=== PATIENT | female | born 1960 | race Caucasian/White ===

== ENCOUNTER 2017-08-13 13:27 | Emergency (ER) | payer BC, OTHER ==
[~2017-08-13] VITALS: Ht 167.6 cm; Wt 70.3 kg
[~2017-08-13 13:27] MED LIST: ALBUTEROL2.5 MG/0.5 IH; AMITRIPTYLINE H25 M2 PO; BACTRIM DS TAB1 EACH PO; BENADRYL25 MG PO; BUTALB-APAP-CA1 EACH PO; CIPRO500 MG PO; CYCLOBENZAPRINE5 MG PO; DEPO-TESTO100 MG/1 M; DIFLUCAN150 MG PO; DIFLUCAN200 MG PO; FLAGYL500 MG PO; FLEXERIL PO; FLONASE 0.05%50 MCG NASAL; HORMONE REPLACEMENT; HYDROCODONE-AP1 EAC6 PO; MACROBID 100 M100 M1 PO; NAPROSYN250 MG PO; NORCO 5-325 TA1 EACH PO; ONDANSETRON HCL4 M2 PO; PHENAZOPYRIDIN200 M2 PO; PRAVACHOL20 MG PO; PREDNISONE 20 M20 M1 PO; SYNTHROID25 MCG PO; ZOFRAN 4 MG ORAL4 M1 DIS
[2017-08-13 13:45] VITALS: BP 130/80
== END 2017-08-13 14:40 | disposition home or self-care (01) ==
LOC: ER 13:27
DX: G43.909 Migraine, unspecified, not intractable, without status migrainosus (principal); M79.7 Fibromyalgia; Z88.1 Allergy status to other antibiotic agents

== ENCOUNTER 2017-09-21 14:29 | Emergency (ER) | payer BC, OTHER ==
[~2017-09-21] VITALS: Ht 167.6 cm; Wt 71.7 kg
[2017-09-21 14:31] VITALS: BP 132/85
[2017-09-21] MEDS ORDERED: NORCO 5-325 TA1 EACH PO (15:10)
== END 2017-09-21 15:26 | disposition home or self-care (01) ==
LOC: ER 14:29
DX: M25.531 Pain in right wrist (principal); M79.7 Fibromyalgia; G43.909 Migraine, unspecified, not intractable, without status migrainosus; Z88.1 Allergy status to other antibiotic agents

== ENCOUNTER 2018-02-01 23:57 | Emergency (ER) | payer BC, OTHER ==
[~2018-02-01] VITALS: Ht 167.6 cm; Wt 70.3 kg
[2018-02-02 00:35] LABS: URINE BILIRUBIN NEGATIVE (Negative); URINE BLOOD 3+ (Negative); URINE CLARITY CLEAR; URINE COLOR YELLOW; URINE GLUCOSE-RANDOM* NEGATIVE (Negative); URINE KETONES NEGATIVE (Negative); URINE LEUKOCYTES-REFLEX NEGATIVE (Negative); URINE NITRITE-REFLEX NEGATIVE (Negative); URINE PROTEIN (DIPSTICK) NEGATIVE (Negative); URINE SPECIFIC GRAVITY >= 1.030 (1.005-1.035); URINE UROBILINOGEN 0.2 E.U./dl (0.2-1.0)
[2018-02-02 00:47] LABS: CASTS None Seen /LPF (None Seen); MUCUS 4-6 Moderate strn/LPF (None Seen); SQUAMOUS >10 Many /LPF (0-3)
[2018-02-02 00:48] LABS: BACTERIA-REFLEX >30 Many /HPF (None Seen); CRYSTALS None Seen /LPF (None Seen); URINE RBC 3-10 Few /HPF (0-2); URINE WBC-REFLEX 0-5 Rare /HPF (0-5)
[2018-02-02 00:53] LABS: ABSOLUTE NEUTROPHILS 9.1 thou/uL (1.4-8.2); BASOPHILS 0.2 % (0.0-2.0); EOSINOPHILS 1.1 % (0.0-3.0); HEMOGLOBIN 14.7 gm/dL (12.0-15.0); LYMPHOCYTES 12.2 % (24.0-44.0); MCHC 34.2 g/dL (28.0-37.0); MCV 87.7 fL (80.0-100.0); PLATELET COUNT 277 thou/uL (150-400); POLYS 79.5 % (36.0-66.0); RDW 13.7 % (10.5-14.5); WBC 11.4 thou/uL (4.0-11.0)
[2018-02-02 01:01] LABS: CALCIUM 8.9 mg/dL (8.5-10.1); CREATININE 1.2 mg/dL (0.6-1.0)
[2018-02-02 01:07] LABS: ALBUMIN 3.5 g/dL (3.4-5.0); TOTAL BILIRUBIN 0.8 mg/dL (<0.1-1.0); TOTAL PROTEIN 7.1 g/dL (6.4-8.2)
[2018-02-02] MEDS ORDERED: FLAGYL500 MG PO (01:40)
[2018-02-02] MEDS ORDERED: CIPROFLOXACIN500 M1 PO (01:40)
[2018-02-02 02:00] VITALS: BP 134/72
== END 2018-02-02 02:02 | disposition home or self-care (01) ==
LOC: ER 23:57
PROVIDERS: Emergency Medicine
DX: N39.0 Urinary tract infection, site not specified (principal); M79.7 Fibromyalgia; G43.909 Migraine, unspecified, not intractable, without status migrainosus; Z90.49 Acquired absence of other specified parts of digestive tract; Z90.722 Acquired absence of ovaries, bilateral; Z88.1 Allergy status to other antibiotic agents

== ENCOUNTER 2019-01-15 00:39 | Emergency (ER) | payer BC, OTHER ==
[~2019-01-15] VITALS: Ht 167.6 cm; Wt 70.3 kg
[~2019-01-15 00:39] MED LIST changes: +CIPROFLOXACIN500 M1 PO
[2019-01-15] MEDS ORDERED: COZAAR 50 MG TA50 M1 PO (00:56)
[2019-01-15] MEDS ORDERED: RIZATRIPTAN10 M1 PO (01:05)
[2019-01-15] MEDS ORDERED: BUTALB-APAP-CA1 EACH PO (01:28)
[2019-01-15] MEDS ORDERED: PROMS25 WY RECTAL (01:28)
[2019-01-15 01:38] VITALS: BP 156/86
== END 2019-01-15 01:40 | disposition home or self-care (01) ==
LOC: ER 00:39
DX: G43.809 Other migraine, not intractable, without status migrainosus (principal); M62.48 Contracture of muscle, other site; M79.7 Fibromyalgia; Z90.49 Acquired absence of other specified parts of digestive tract; Z90.721 Acquired absence of ovaries, unilateral; Z88.1 Allergy status to other antibiotic agents

== ENCOUNTER 2020-05-04 02:07 | Emergency (ER) | payer BC, OTHER ==
[~2020-05-04] VITALS: Ht 165.1 cm; Wt 71.2 kg
[~2020-05-04 02:07] MED LIST changes: +COZAAR 50 MG TA50 M1 PO; +PROMS25 WY RECTAL; +RIZATRIPTAN10 M1 PO
[2020-05-04] MEDS ORDERED: SERTRALINE HCL100 MG PO (02:20)
[2020-05-04] MEDS ORDERED: ASA81BEC PO (02:21)
[2020-05-04] MEDS ORDERED: REGLAN 5 MG TAB5 MG PO (03:07)
[2020-05-04 03:29] VITALS: BP 168/84
== END 2020-05-04 03:29 | disposition home or self-care (01) ==
LOC: ER 02:07
DX: G43.909 Migraine, unspecified, not intractable, without status migrainosus (principal); M79.7 Fibromyalgia; Z88.1 Allergy status to other antibiotic agents; Z79.82 Long term (current) use of aspirin; Z79.899 Other long term (current) drug therapy; Z90.49 Acquired absence of other specified parts of digestive tract; Z90.710 Acquired absence of both cervix and uterus; Z85.118 Personal history of other malignant neoplasm of bronchus and lung

== ENCOUNTER 2020-07-07 12:09 | Emergency (ER) | payer BC, OTHER ==
[~2020-07-07] VITALS: Ht 162.6 cm; Wt 70.8 kg
[~2020-07-07 12:09] MED LIST changes: +ASA81BEC PO; +REGLAN 5 MG TAB5 MG PO; +SERTRALINE HCL100 MG PO
[2020-07-07 15:15] VITALS: BP 129/76
== END 2020-07-07 15:16 | disposition home or self-care (01) ==
LOC: ER 12:09
DX: M75.51 Bursitis of right shoulder (principal); G43.909 Migraine, unspecified, not intractable, without status migrainosus; Z90.49 Acquired absence of other specified parts of digestive tract; Z90.710 Acquired absence of both cervix and uterus; Z79.82 Long term (current) use of aspirin; Z79.899 Other long term (current) drug therapy; Z88.1 Allergy status to other antibiotic agents

== ENCOUNTER 2020-08-10 06:59 | Emergency (ER) | payer BC, OTHER ==
[~2020-08-10] VITALS: Ht 165.1 cm; Wt 68.0 kg
[2020-08-10 07:51] LABS: ABSOLUTE NEUTROPHILS 6.5 thou/uL (1.4-8.2); BASOPHILS 0.1 % (0.0-2.0); EOSINOPHILS 1.5 % (0.0-3.0); HEMATOCRIT 44.4 % (37.0-47.0); HEMOGLOBIN 14.9 gm/dL (12.0-15.0); LYMPHOCYTES 10.6 % (24.0-44.0); MCH 29.5 pg (26.0-34.0); MCHC 33.4 g/dL (28.0-37.0); MCV 88.2 fL (80.0-100.0); MONOCYTES 7.5 % (1.0-8.0); PLATELET COUNT 307 thou/uL (150-400); POLYS 80.3 % (36.0-66.0); RBC 5.04 mil/uL (4.20-5.00); RDW 14.5 % (10.5-14.5); WBC 8.1 thou/uL (4.0-11.0)
[2020-08-10 07:55] LABS: CALCIUM 8.6 mg/dL (8.5-10.1); POTASSIUM 3.3 mmol/L (3.5-5.1)
[2020-08-10 08:01] LABS: ALBUMIN 3.5 g/dL (3.4-5.0); TOTAL BILIRUBIN 0.7 mg/dL (0.2-1.0); TOTAL PROTEIN 7.2 g/dL (6.4-8.2)
[2020-08-10 10:28] VITALS: BP 147/72
== END 2020-08-10 10:28 | disposition home or self-care (01) ==
LOC: ER 06:59
PROVIDERS: Emergency Medicine Emergency Medical Services
DX: R19.7 Diarrhea, unspecified (principal); Z20.822 Contact with and (suspected) exposure to COVID-19; C34.90 Malignant neoplasm of unspecified part of unspecified bronchus or lung; R11.2 Nausea with vomiting, unspecified; M79.7 Fibromyalgia; G43.909 Migraine, unspecified, not intractable, without status migrainosus; Z88.1 Allergy status to other antibiotic agents; Z79.82 Long term (current) use of aspirin; Z79.899 Other long term (current) drug therapy; Z90.710 Acquired absence of both cervix and uterus; Z92.21 Personal history of antineoplastic chemotherapy

== ENCOUNTER 2020-08-25 20:46 | Emergency (ER) | payer BC, OTHER ==
[~2020-08-25] VITALS: Ht 165.1 cm; Wt 68.0 kg
[2020-08-25 21:22] LABS: URINE BILIRUBIN NEGATIVE (Negative); URINE BLOOD 3+ (Negative); URINE CLARITY CLEAR; URINE COLOR YELLOW; URINE GLUCOSE-RANDOM* NEGATIVE (Negative); URINE KETONES NEGATIVE (Negative); URINE LEUKOCYTES-REFLEX NEGATIVE (Negative); URINE NITRITE-REFLEX NEGATIVE (Negative); URINE PROTEIN (DIPSTICK) NEGATIVE (Negative); URINE SPECIFIC GRAVITY >= 1.030 (1.005-1.035); URINE UROBILINOGEN 0.2 E.U./dl (0.2-1.0)
[2020-08-25 21:26] LABS: ABSOLUTE NEUTROPHILS 6.5 thou/uL (1.4-8.2); BASOPHILS 0.2 % (0.0-2.0); EOSINOPHILS 1.4 % (0.0-3.0); HEMATOCRIT 38.9 % (37.0-47.0); HEMOGLOBIN 13.5 gm/dL (12.0-15.0); MCH 30.6 pg (26.0-34.0); MCHC 34.6 g/dL (28.0-37.0); MCV 88.3 fL (80.0-100.0); MONOCYTES 7.7 % (1.0-8.0); PLATELET COUNT 224 thou/uL (150-400); POLYS 81.7 % (36.0-66.0); RDW 14.9 % (10.5-14.5); WBC 7.9 thou/uL (4.0-11.0)
[2020-08-25 21:30] LABS: ANION GAP 8 mmol/L (7-16); BUN 10 mg/dL (7-18); CALCIUM 8.3 mg/dL (8.5-10.1); CHLORIDE 107 mmol/L (98-107); CO2 27 mmol/L (21-32); CREATININE 1.1 mg/dL (0.6-1.0); GLUCOSE 99 mg/dL (74-106); POTASSIUM 4.1 mmol/L (3.5-5.1); SODIUM 142 mmol/L (136-145)
[2020-08-25 21:31] LABS: CASTS None Seen /LPF (None Seen); MUCUS 0-3 Light strn/LPF (None Seen); SQUAMOUS 4-10 Moderate /LPF (0-3); URINE WBC-REFLEX 0-5 Rare /HPF (0-5)
[2020-08-25 21:32] LABS: BACTERIA-REFLEX 1-9 Few /HPF (None Seen); CRYSTALS None Seen /LPF (None Seen)
[2020-08-25 21:33] LABS: YEAST-REFLEX Present (None Seen)
[2020-08-25 21:36] LABS: ALBUMIN 3.1 g/dL (3.4-5.0); DIRECT BILIRUBIN < 0.1 mg/dL (<0.1-0.2); LIPASE 126 U/L (73-393); SGOT 30 U/L (15-37); SGPT 47 U/L (14-59); TOTAL BILIRUBIN 0.5 mg/dL (0.2-1.0); TOTAL PROTEIN 6.6 g/dL (6.4-8.2)
[2020-08-25] MEDS ORDERED: DIFLUCAN100 MG PO (22:41)
[2020-08-25] MEDS ORDERED: FLAGYL500 M1 PO (22:41)
[2020-08-25] MEDS ORDERED: CIPRO500 M1 PO (22:41)
[2020-08-25 22:45] VITALS: BP 131/76
== END 2020-08-25 22:50 | disposition home or self-care (01) ==
LOC: ER 20:46
PROVIDERS: Nurse Practitioner
DX: R10.31 Right lower quadrant pain (principal); M79.7 Fibromyalgia; G43.909 Migraine, unspecified, not intractable, without status migrainosus; Z90.49 Acquired absence of other specified parts of digestive tract; Z90.710 Acquired absence of both cervix and uterus; Z90.722 Acquired absence of ovaries, bilateral; Z85.118 Personal history of other malignant neoplasm of bronchus and lung; Z88.1 Allergy status to other antibiotic agents

== ENCOUNTER 2020-11-26 17:08 | Inpatient (IN) | payer BC, OTHER ==
[~2020-11-26] VITALS: Ht 165.1 cm; Wt 68.0 kg
[~2020-11-26 17:08] MED LIST changes: +CIPRO500 M1 PO; +DIFLUCAN100 MG PO; +FLAGYL500 M1 PO
[2020-11-26 17:11] VITALS: BP 119/64
[2020-11-26 18:05] LABS: HEMATOCRIT 31.3 % (37.0-47.0); MCH 30.9 pg (26.0-34.0); MCV 88.3 fL (80.0-100.0); PLATELET COUNT 185 thou/uL (150-400); RBC 3.55 mil/uL (4.20-5.00); RDW 14.2 % (10.5-14.5); WBC 2.2 thou/uL (4.0-11.0)
[2020-11-26 18:12] LABS: CALCIUM 8.2 mg/dL (8.5-10.1); CREATININE 1.3 mg/dL (0.6-1.0); POTASSIUM 3.7 mmol/L (3.5-5.1)
[2020-11-26 18:20] LABS: ALBUMIN 2.6 g/dL (3.4-5.0); TOTAL BILIRUBIN 0.7 mg/dL (0.2-1.0); TOTAL PROTEIN 6.1 g/dL (6.4-8.2)
[2020-11-26 18:54] LABS: URINE BILIRUBIN NEGATIVE (Negative); URINE BLOOD 2+ (Negative); URINE CLARITY CLEAR; URINE COLOR YELLOW; URINE GLUCOSE-RANDOM* NEGATIVE (Negative); URINE KETONES NEGATIVE (Negative); URINE LEUKOCYTES-REFLEX NEGATIVE (Negative); URINE PROTEIN (DIPSTICK) 1+ (Negative); URINE UROBILINOGEN 0.2 E.U./dl (0.2-1.0)
[2020-11-26 18:57] LABS: URINE NITRITE-REFLEX POSITIVE (Negative)
[2020-11-26 19:08] LABS: SQUAMOUS 4-10 Moderate /LPF (0-3)
[2020-11-26 19:09] LABS: URINE WBC-REFLEX 0-5 Rare /HPF (0-5)
[2020-11-26 19:10] LABS: CASTS None Seen /LPF (None Seen); CRYSTALS None Seen /LPF (None Seen)
[2020-11-26 19:29] LABS: ATYPICAL LYMPHS 2 %; METAMYELOCYTES 1 %
[2020-11-26 21:10] VITALS: BP 103/61
[2020-11-26] MEDS ORDERED: SYNTHROID100 MC1 PO (21:58)
[2020-11-26 22:21] VITALS: BP 103/61
--- NOTE | 2020-11-26 23:02 | NUR ---
ADMITTED TO THE UNIT AT 2210. PT IS A/O X4 AND IS UP AD FAIZAN IN ROOM. IS ON ROOM AIR. SR/ST ON THE MONITOR. VSS AFEBRILE. 95% ON ROOM AIR. ABX AND MAINTENCE FLUID INFUSING THROUGH LEFT CHEST PORT CURRENTLY. PT HAS BEEN EDUCATED ON THE USE OF CALL LIGHT AND BED CONTROLS. CALL LIGHT IS WITHIN REACH. WILL CONTINUE TO MONITOR. DENIES C/O PAIN OR DISCOMFORT.
[2020-11-27 06:09] LABS: HEMATOCRIT 27.5 % (37.0-47.0); HEMOGLOBIN 9.7 gm/dL (12.0-15.0); MCH 31.3 pg (26.0-34.0); MCHC 35.4 g/dL (28.0-37.0); MCV 88.4 fL (80.0-100.0); RBC 3.11 mil/uL (4.20-5.00); RDW 14.5 % (10.5-14.5)
[2020-11-27 06:22] LABS: CALCIUM 7.6 mg/dL (8.5-10.1); CREATININE 1.3 mg/dL (0.6-1.0); MAGNESIUM 1.9 mg/dL (1.8-2.4)
[2020-11-27 07:30] VITALS: BP 116/59
--- NOTE | 2020-11-27 07:30 | EKG ---
[address] [employer] [place] [address] ELECTROCARDIOGRAM REPORT Name: JONG LUX ADRI Room #: 457-P ADM IN M.R.#: [id number] Admission: 11/26/20 Attend Phys: Yari Kelly MD Discharge: Date of : 60 Report #: [id number] [facility] ED Test Date: 2020-11-26 Test Time: 17:27:47 Pat Name: JONG LUX Department: Room: 457 Gender: F Insulation Nozzleman: WILNER : 1960 Requested By: Wolfgang Taylor Order Number: [id number] : George Reyna Measurements Intervals [place] Rate: 122 P: 55 MD: 134 QRS: -27 QRSD: 83 T: 59 QT: 320 QTc: 456 Interpretive Statements Sinus tachycardia Borderline left axis deviation Low voltage, extremity leads No previous ECG available for comparison Electronically Signed On 11-27-2020 7:30:31 CDT by George Reyna [email or web address] <ELECTRONICALLY SIGNED> By: George Reyna MD, [facility] 11/27/20 0730 1727 1727 George Reyna MD, FACC /EPI
--- NOTE | 2020-11-27 10:30 | NUR ---
ASSUMED PT CARE THIS AM. PT IS ALERT & ORIENTED X4. PT HAS L CHEST PORT. PT IS UP AD FAIZAN. PT IS ON TELE MONITOR ON AND ON ROOM AIR. NO C/O OF PAIN, NAUSEA AND VOMITING THIS AM. NOTED LOW GRADE FEVER THIS AM AND GIVEN TYLENOL AND RECHECK AND TEMP NOW 98.7F. SEND MESSAGE TO CS REGARDING NEUTROPENIC PRECAUTION PER DR MERCER ORDERED. PT AT THE BEDSIDE. WILL CONTINUE TO MONITOR PT. FOLLOW POC.
--- NOTE | 2020-11-27 14:44 | NUR ---
PT ADMITTED RELATED TO [facility]PS[facility]. CM REVIEWED CHART AND SPOKE WITH CARE TEAM. CM MET WITH PT AND FRIEND BENOIT AT BEDSIDE THIS DAY. PT APPEARED TO BE A&O X4. CM ROLE INTRODUCED. PT INDICATED THAT SHE RESIDES IN A HOUSE WITH HER SPOUSE WITH NO STEPS TO ENTER AND 12 STEPS TO BASEMENT INSIDE. 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 PT INDICATED NO HH OR OP THERAPY HX. PT FOLLOWS WITH DR. BRIANNA GILLESPIE FOR CHEMO AT AND HER LAST TREATMENT WAS 2 WEEKS AGO. PT'S PCP IS DR. RODOLFO SMITH. PT INDICATED SHE PLANS TO RETURN HOME ONCE MEDICALLY STABLE. CM FOLLOWING REGARDING DC PLANNING.
[2020-11-27 15:08] VITALS: BP 124/75; BP 94/64
[2020-11-27 20:04] VITALS: BP 125/75
[2020-11-28 04:00] VITALS: BP 126/76
--- NOTE | 2020-11-28 04:54 | NUR ---
Assumed pt care at 1900. A/OX4, at HS febrile temp 101.3 medicated with Tylenol and effective;down to 98.8. Denies pain,N/V on assessmnet. Has a non productive cough,fluids encouraged. Left chest port patent with NS infusing w/o problems. Dr Gutiérrez rounded at HS,N.O written and implemented. Placed on neutropinic isolation. Up ad vinny w/o problems. ST on telemetry.Resting quietly w/o distress,will continue to monitor pt.
[2020-11-28 05:46] LABS: HEMATOCRIT 25.3 % (37.0-47.0); HEMOGLOBIN 8.9 gm/dL (12.0-15.0); MCH 31.2 pg (26.0-34.0); MCHC 35.2 g/dL (28.0-37.0); MCV 88.6 fL (80.0-100.0); RBC 2.86 mil/uL (4.20-5.00); RDW 14.2 % (10.5-14.5); WBC 2.6 thou/uL (4.0-11.0)
[2020-11-28 06:04] LABS: CALCIUM 7.5 mg/dL (8.5-10.1); CREATININE 1.2 mg/dL (0.6-1.0); POTASSIUM 3.4 mmol/L (3.5-5.1)
[2020-11-28 08:25] VITALS: BP 130/80
--- NOTE | 2020-11-28 08:32 | HC ---
[facility] [place] [address] CONSULTATION Name: JONG LUX [facility] Room #: 457-P [facility] IN M.R.#: [id number] Admission: 11/26/20 Attend Phys: Tr Benitez MD Discharge: Date of : 60 Report #: [id number] THIS REPORT FOR: cc: Alma Delia Sanchez MD, Melanie MD McKittrick, Richard James MD ~ cc: Yari Kelly MD DATE OF SERVICE: 11/27/2020 REASON FOR CONSULTATION: History of metastatic pleomorphic high-grade sarcoma. HISTORY OF PRESENT ILLNESS: The patient is a very pleasant 60-year-old female who has a history of sarcoma since originally diagnosed in 2008. She began her first cycle of Adriamycin on about 11/14/2020. She tolerated it well. Was around some grandkids about a week ago who had some nausea and vomiting, her and her both had that but that resolved. But for the last 2 or 3 days, she developed fever up to 102, and was up to 103 last night. She came to the Emergency Room more for COVID test, was found to be neutropenic and was admitted. She denies any unusual headaches though she does have a history of migraines. Her nausea and vomiting has resolved. No really diarrhea or constipation that resolved. No blood in urine or stool. No new arm or leg swelling. No new skin changes. No new skin rash. No new cough. She has had a slight cough, but actually may be slightly better, nonproductive for the most part, has had some mouth sores she describes in her lower inner base of mouth. 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 She then had surgery on at a later date with 90% necrosis that was surgery on 09/27/2019. Unfortunately, in 03/2020 she is thought to have progression of, then was thought to be, metastatic disease. She was on Keytruda with a mixed response, had radiation therapy to her right middle lobe lesion, completed in July 2020. Most recently, she had some progression and began Adriamycin on 11/14/2020. PAST MEDICAL HISTORY: Also history of asthma, skin cancer, hypothyroidism, hyperlipidemia, hypertension, history of migraines. PAST SURGICAL HISTORY: Also, history of hysterectomy, oophorectomy, appendectomy, cholecystectomy, EGD with biopsy in the past, knee arthroscopy, and shoulder surgery. FAMILY HISTORY: Noncontributory. SOCIAL HISTORY: Both her and her from the [place] area. 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 They have, I [facility] [address] [place] [address] CONSULTATION Name: JONG LUX ADRI Room #: 457-P [facility] IN M.R.#: [id number] Admission: 11/26/20 Attend Phys: Tr Benitez MD Discharge: Date of : 60 Report #: [id number] think, 2 children and 6 grandchildren in the area. Nonsmoker, minimal alcohol, no street drugs. MEDICATIONS: At this time in the hospital, currently include amitriptyline 25 daily, enteric-coated aspirin 81 daily, vancomycin 750 q.12, famotidine 20 daily, levothyroxine 100 mcg daily, budesonide 0.5 respiratory therapy b.i.d., ipratropium albuterol q. 4 respiratory therapy, Zosyn 3.375 q. 8 hours, Lovenox 40 at bedtime, Tylenol p.r.n., Zofran p.r.n. PHYSICAL EXAMINATION: GENERAL: The patient appears her stated age. VITAL SIGNS: Her height is 5 feet 5 inches, 165.1 cm, weight is 150 pounds or 68.04 kg, temperature was up to 102.1 last night, currently 99.5, blood pressure 116/59, respirations 21, pulse 137, O2 sat 95%. NEUROLOGIC: Alert and oriented. Speech and thought pattern normal. Moving upper and lower extremities. HEENT: Oral is clear, though there may be some mucositis lesions underneath or on floor of her mouth. LUNGS: Appear to be clear, without rhonchi, wheezes, or use of accessory muscles. HEART: Regular rate, but slightly tachycardic. LYMPHATICS: No enlarged lymph nodes in the supraclavicular, cervical, axillary or inguinal region. ABDOMEN: Soft, no masses. EXTREMITIES: Without clubbing, cyanosis. There may be trace edema. LABORATORY DATA: Here notable for a creatinine of 1.3, hemoglobin 9.7 today, white count 2. ANC yesterday was 1, when the white count was 2.2, platelets are 168. TSH 1.092, albumin 2.6. UA had some bacteria, but also had squamous cells, probably contaminant. IMAGING STUDIES: Imaging yesterday showed a chest x-ray with questionable infiltrate. ASSESSMENT AND PLAN: 1. Recurrent undifferentiated pleomorphic sarcoma, status post chemotherapy 2 weeks ago. Unclear if responding. We will need to have another cycle prior to reimaging. May consider growth factor with next round of chemo. 2. Neutropenia, fever. Cultures pending. Continue broad spectrum antibiotics. 3. Neutropenia precautions. 4. Acute kidney injury. Fluids and monitor. 5. Hypertension. Meds per others. 6. Hypothyroid, replace as per others. 7. Protein-calorie malnutrition. Encourage protein intake. 8. History of migraines. [facility] [address] [place] [address] CONSULTATION Name: JONG LUX ADRI Room #: 457-P [facility] IN M.R.#: [id number] Admission: 11/26/20 Attend Phys: Tr Benitez MD Discharge: Date of : 60 Report #: [id number] 9. History of asthma. Meds per others. 10. History of gastroesophageal reflux disease. Continue famotidine. 11. Prophylaxis. Lovenox. We will follow with you. <ELECTRONICALLY SIGNED> By: Osmar Johnson MD 11/28/20 0832 [id number] Osmar Johnson MD /nt
--- NOTE | 2020-11-28 11:49 | NUR ---
Patient A/O x 4. Room air. AD FAIZAN- she walks in the hallways often. Her at bedside, Jose Carlos through karan today is 9, temp 100.2 this morning tylenol given. Sputum culture sent and results still pending, vhest xray completed today, possible d/c over weekend per CM.
--- NOTE | 2020-11-28 15:12 | NUR ---
CARE TEAM INDICATED THAT PT WILL LIKELY BE MEDICALLY STABLE TO DC HOME OVER THE WEEKEND. IT IS ANTICIPATED THAT PT WILL DC HOME TO SELF CARE. CM FOLLOWING SHOULD ANY DC NEEDS ARISE.
[2020-11-28 20:17] VITALS: BP 136/83
[2020-11-29 02:06] LABS: HIV ANTIBODY Non Reactive (Non Reactive)
--- NOTE | 2020-11-29 07:46 | NUR ---
patient aox4 makes needs known. patient ambulates with steady gaits in the room and in the unit. patient is up at vinny. patient in bed asleep at this time breathing regular and unlaboured.
[2020-11-29 08:49] VITALS: BP 131/80
[2020-11-29 15:00] VITALS: BP 120/74
--- NOTE | 2020-11-29 17:58 | NUR ---
Patient has had no pain this shift. Has walked in the hallways with her multiple times today. Has had no temps. Has eaten 40% of her meals each with a full ensure. No nausea this shift. Tolerating IV ABT well, no adverse effects noted.
[2020-11-29 20:23] VITALS: BP 139/85
[2020-11-30 06:23] LABS: ABSOLUTE NEUTROPHILS 1.5 thou/uL (1.4-8.2); BASOPHILS 0.4 % (0.0-2.0); EOSINOPHILS 0.1 % (0.0-3.0); RDW 14.6 % (10.5-14.5); WBC 2.6 thou/uL (4.0-11.0)
[2020-11-30 06:24] LABS: LYMPHOCYTES 20.8 % (24.0-44.0); MCHC 34.7 g/dL (28.0-37.0); MCV 89.5 fL (80.0-100.0); MONOCYTES 19.5 % (1.0-8.0); POLYS 59.2 % (36.0-66.0)
[2020-11-30 06:25] LABS: PLATELET COUNT 278 thou/uL (150-400)
--- NOTE | 2020-11-30 07:31 | NUR ---
patient was tearful this shift, saying<<this might be my last summer>> patient ambulates with steady gaits. patient is up at vinny. patient ambulates with steady gaits. patient in bed asleep at this time breathing regular and unlaboured.
[2020-11-30 08:02] VITALS: BP 144/89
--- NOTE | 2020-11-30 15:06 | NUR ---
Sputum sample send to lab. 99.4 F this morning @ 0830. No tylenol given. IV fluids D/C'd. Has walked in hallways with her multiple times this shift. No pain or nausea this shift.
[2020-11-30 16:19] VITALS: BP 139/92
[2020-11-30 20:14] VITALS: BP 157/83
--- NOTE | 2020-12-01 03:06 | NUR ---
PT CARE ASSUMED WITH PT IN BED WITH VISITOR AT BEDSIDE AT 1900.PT IS A/O X4.PT IS UP AD FAIZAN .PT DENIED ANY PAIN.IV LT CHEST PORT SL.PT IS ON ROOM AIR.NO NEW C/O AT THIS TIME.WILL CONTINUE TO MONITOR PER POC
[2020-12-01 06:23] LABS: HEMATOCRIT 27.3 % (37.0-47.0); HEMOGLOBIN 9.3 gm/dL (12.0-15.0); MCH 30.7 pg (26.0-34.0); MCHC 33.8 g/dL (28.0-37.0); MCV 90.7 fL (80.0-100.0); RBC 3.02 mil/uL (4.20-5.00); RDW 14.5 % (10.5-14.5); WBC 3.2 thou/uL (4.0-11.0)
[2020-12-01 13:59] VITALS: BP 157/83
[2020-12-01] MEDS ORDERED: LEVOFLOXACIN750 MG PO ×2 (15:18→15:37)
[2020-12-01 15:21] VITALS: BP 157/83
--- NOTE | 2020-12-01 16:07 | NUR ---
CARE TEAM INDICATED THAT PT IS MEDICALLY STABLE TO DC HOME THIS DAY. PT IS TO DC HOME TO SELF CARE. PT'S SPOUSE PROVIDING TRNASPORT HOME THIS DAY. NO OTHER CM INTERVENTION INDICATED. CASE CLOSED.
--- NOTE | 2020-12-01 19:50 | NUR ---
Assumed pt care at 7am.Pt in bed resting without c/o.Assessment completed.vss. Dr Benitez rounded on pt adn dc order noted.Dr Gutiérrez notified about pt dc home today and he came to see pt .Oral antibiotic sent to pt pharmacy.Port deactivated prior to pt dc home with at 1630.
[2020-12-02 23:06] LABS: HISTOPLASMA MYCELIAL-CF Negative (Neg:<1:2)
== END 2020-12-01 16:30 | disposition home or self-care (01) | DRG 871 ==
LOC: ER 17:08 → EROBS 21:09 → 4W 21:09
PROVIDERS: Emergency Medicine; Nurse Practitioner Family; Specialist; ADMIT Hospitalist; ATTEND Hospitalist
DX: A41.9 Sepsis, unspecified organism (principal); J18.9 Pneumonia, unspecified organism; C78.00 Secondary malignant neoplasm of unspecified lung; N17.9 Acute kidney failure, unspecified; E46 Unspecified protein-calorie malnutrition; C76.51 Malignant neoplasm of right lower limb; Z92.21 Personal history of antineoplastic chemotherapy; I10 Essential (primary) hypertension; E03.9 Hypothyroidism, unspecified; G43.909 Migraine, unspecified, not intractable, without status migrainosus; D70.9 Neutropenia, unspecified; R50.81 Fever presenting with conditions classified elsewhere; E78.5 Hyperlipidemia, unspecified; Z20.822 Contact with and (suspected) exposure to COVID-19; K21.9 Gastro-esophageal reflux disease without esophagitis; K12.30 Oral mucositis (ulcerative), unspecified; M79.7 Fibromyalgia; Z90.49 Acquired absence of other specified parts of digestive tract; Z90.722 Acquired absence of ovaries, bilateral; Z90.710 Acquired absence of both cervix and uterus; Z79.51 Long term (current) use of inhaled steroids; Z79.899 Other long term (current) drug therapy; Z88.1 Allergy status to other antibiotic agents; Z80.1 Family history of malignant neoplasm of trachea, bronchus and lung; Z82.49 Family history of ischemic heart disease and other diseases of the circulatory system; Z83.3 Family history of diabetes mellitus; Z85.828 Personal history of other malignant neoplasm of skin; Z68.25 Body mass index [BMI] 25.0-25.9, adult
CPT/HCPCS: 10045